=== PATIENT | male | born 1945 | race Caucasian/White ===

== ENCOUNTER → 2018-12-17 | Outpatient (CLI) | payer OTHER | LOC: CAT 13:05 | DX: Z13.6 Encounter for screening for cardiovascular disorders (principal); E78.00 Pure hypercholesterolemia, unspecified; I25.10 Atherosclerotic heart disease of native coronary artery without angina pectoris ==

== ENCOUNTER → 2019-07-23 | Outpatient (CLI) | payer OTHER | LOC: RAD 12:21 | DX: M50.322 Other cervical disc degeneration at C5-C6 level (principal); M25.78 Osteophyte, vertebrae; M48.02 Spinal stenosis, cervical region ==